=== PATIENT | female | born 1985 | race Caucasian/White ===

== ENCOUNTER 2016-06-12 08:30 | Emergency (ER) | payer OTHER ==
[~2016-06-12] VITALS: Ht 172.7 cm; Wt 97.5 kg
[2016-06-12 08:37] VITALS: BP 136/79
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
[2016-06-12] MEDS ORDERED: CYCLOBENZAPRINE5 M2 PO (08:50)
== END 2016-06-12 09:00 ==
LOC: ERH 08:30
DX: S29.012A Strain of muscle and tendon of back wall of thorax, initial encounter (principal); V49.40XA Driver injured in collision with unspecified motor vehicles in traffic accident, initial encounter

== ENCOUNTER 2017-04-07 11:23 | Emergency (ER) | payer OTHER ==
[~2017-04-07] VITALS: Ht 172.7 cm; Wt 95.3 kg
[~2017-04-07 11:23] MED LIST: CYCLOBENZAPRINE5 M2 PO
[2017-04-07 11:54] VITALS: BP 137/92
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
--- NOTE | 2017-04-07 14:11 | RADIOLOGY REPORT ---
EXAMINATION: XR FOREARM, LEFT CLINICAL INFORMATION: Concern for forearm fracture. Severe pain status post fall. COMPARISON: None TECHNIQUE: AP and lateral views of the left forearm were obtained. FINDINGS: The bones and soft tissues are normal. No fracture. Imaged portions of the elbow and wrist are unremarkable. IMPRESSION: Normal left forearm.
[2017-04-07] MEDS ORDERED: IBUPROFEN800 M1 PO (14:22)
[2017-04-07] MEDS ORDERED: PERCOCET 5-3251 EACH PO (14:22)
== END 2017-04-07 14:46 ==
LOC: ERH 11:23
DX: S50.12XA Contusion of left forearm, initial encounter (principal); S50.02XA Contusion of left elbow, initial encounter; W00.0XXA Fall on same level due to ice and snow, initial encounter; Y92.9 Unspecified place or not applicable; Y93.9 Activity, unspecified
CPT/HCPCS: 73090-LT; 96372